=== PATIENT | female | born 2000 | race African-American/Black ===

== ENCOUNTER 2022-10-26 12:54 | Inpatient (IN) | payer OTHER ==
[2022-10-28] MEDS ORDERED: fentaNYL 50 mcg/mL 1 mL Vial SLOW IVP PRN (21:54)
[2022-10-28] MEDS ORDERED: Acetaminophen 500 MG TAB PO PRN (21:54)
[2022-10-28] MEDS ORDERED: Ibuprofen 800 MG TAB PO PRN (21:54)
[2022-10-28] MEDS ORDERED: Diphenoxylate HCl/Atropine Tablet PO PRN (21:54)
[2022-10-28] MEDS ORDERED: Ondansetron PF 4 MG/2 ML Vial IVP PRN (21:54)
[2022-10-28] MEDS ORDERED: Methylergonovine 0.2 MG/ML VIAL IM PRN (21:54)
[2022-10-28] MEDS ORDERED: HYDROcodone/Acetaminophen 5/325 mg Tablet PO PRN (21:54)
[2022-10-28] MEDS ORDERED: Misoprostol 200 MCG TAB PR PRN (21:54)
[2022-10-28] MEDS ORDERED: Lidocaine 1% (PF) 30 ML VIAL SC PRN (21:54)
[2022-10-28] MEDS ORDERED: Carboprost 250 MCG/ML AMP IM PRN (21:54)
[2022-10-28] MEDS ORDERED: Promethazine HCl 25 MG/ML VIAL IM PRN (21:54)
[2022-10-28] MEDS ORDERED: hydrALAZINE 20 MG/ML VIAL SLOW IVP PRN (21:54)
[2022-10-28] MEDS ORDERED: Tranexamic Acid 1,000 MG/10 ML VIAL IVP PRN (21:54)
[2022-10-28] MEDS ORDERED: NS w/ Oxytocin 30 units 500 ML IV SCH ×3 (22:00)
[2022-10-28 22:13] VITALS: BMI 30.8
[2022-10-28 22:20] LABS: White Blood Cell (WBC) Count 8.7 10x3/uL (3.5-10.5)
[2022-10-28 22:21] LABS: Hemoglobin 11.6 g/dL (12.0-15.5); Mean Corpuscular HGB CONC 33.3 g/dL (32.0-36.0); Mean Corpuscular Volume 77.9 fl (81.6-98.3); Mean Platelet Volume 13.7 fl (7.4-10.4); Platelet Count 156 10x3/uL (150-450); RBC Distribution Width 13.7 % (11.5-14.5); Red Blood Cell (RBC) Count 4.47 10x6/uL (3.90-5.03)
[2022-10-28] MEDS: Misoprostol 100 MCG TAB VAG SCH (22:22)
[2022-10-28] MEDS: Lactated Ringer's 1,000 ML IV SCH (22:22)
[2022-10-28 22:47] LABS: HBSAg Index 0.17 S/CO (0-0.99); Hep B Surf Ag - L&D Non-Reactive S/CO (NonReactive)
[2022-10-28 22:48] LABS: Syphilis Antibody Nonreactive (Nonreactive); Syphilis Antibody Index 0.24 S/CO (<1.00 Non-Reactive)
[2022-10-29] MEDS ORDERED: Terbutaline Sulfate 1 MG/ML VIAL ONE (00:41)
[2022-10-29] MEDS: Misoprostol 100 MCG TAB VAG SCH ×3 (03:59→14:12)
[2022-10-29] MEDS ORDERED: CEFAZOLIN 2 GM VIAL ONE (10:28)
[2022-10-29] MEDS ORDERED: Morphine PF 10 MG/10 ML VIAL ONE (11:04)
[2022-10-29] MEDS ORDERED: Ondansetron PF 4 MG/2 ML Vial ONE ×2 (11:25)
[2022-10-29] MEDS ORDERED: Oxytocin 10 UNITS/ML VIAL ONE (11:25)
[2022-10-29] MEDS ORDERED: Dexamethasone 4 mg/ml Vial ONE (11:25)
[2022-10-29] MEDS ORDERED: Ketorolac Tromethamine 30 MG/ML VIAL ONE (11:25)
[2022-10-29] MEDS ORDERED: Naloxone HCl 0.4 mg/ml Vial IV PRN (12:15)
[2022-10-29] MEDS ORDERED: Ondansetron HCl/PF 4 MG/2 ML Vial IVP PRN (12:15)
[2022-10-29] MEDS ORDERED: Ketorolac Tromethamine 30 MG/ML VIAL IVP PRN (12:15)
[2022-10-29] MEDS ORDERED: Communication Order-Pharmacy FS SCH (12:15)
[2022-10-29] MEDS ORDERED: Promethazine HCl 25 MG/ML VIAL IM PRN ×2 (12:15→14:12)
[2022-10-29] MEDS ORDERED: Ketorolac Tromethamine 30 MG/ML VIAL IVP SCH (12:15)
[2022-10-29] MEDS ORDERED: Ondansetron PF 4 MG/2 ML Vial IVP PRN ×2 (12:15→14:12)
[2022-10-29] MEDS ORDERED: Moisturizing Cream (Eucerin) 113 GM JAR TOP PRN (12:15)
[2022-10-29] MEDS ORDERED: Naloxone HCl 0.4 mg/ml Vial IVP PRN ×2 (12:15)
[2022-10-29] MEDS ORDERED: diphenhydrAMINE 50 MG/ML VIAL IVP PRN (12:15)
[2022-10-29] MEDS ORDERED: Fentanyl 100 MCG/2 ML VIAL SLOW IVP PRN (12:15)
[2022-10-29] MEDS ORDERED: Promethazine HCl 25 MG SUPP PR PRN (12:15)
[2022-10-29] MEDS ORDERED: Meperidine HCl/PF 25 MG/ML VIAL SLOW IVP PRN (12:15)
[2022-10-29] MEDS: Lactated Ringer's 1,000 ML IV SCH (14:11)
[2022-10-29] MEDS ORDERED: Simethicone Chewable 80 MG TAB PO PRN (14:12)
[2022-10-29] MEDS ORDERED: diphenhydrAMINE 25 MG CAP PO PRN (14:12)
[2022-10-29] MEDS ORDERED: Lanolin Ointment 7 GM TUBE TOP PRN (14:12)
[2022-10-29] MEDS ORDERED: hydrALAZINE 20 MG/ML VIAL SLOW IVP PRN (14:12)
[2022-10-29] MEDS ORDERED: Bisacodyl 10 MG SUPP PR PRN (14:12)
[2022-10-29] MEDS ORDERED: Boostrix 0.5 ML (Tdap) VIAL (>/=7 yrs of age) IM ONE (14:12)
[2022-10-29] MEDS: Ketorolac Tromethamine 30 MG/ML VIAL IVP SCH ×2 (17:39→23:58)
[2022-10-29] MEDS: Docusate 100 MG CAP PO SCH (23:57)
[2022-10-29] MEDS: Ferrous Sulfate 325 MG TAB PO SCH (23:59)
[2022-10-30 04:06] LABS: Hemoglobin 9.7 g/dL (12.0-15.5); Mean Corpuscular HGB CONC 31.9 g/dL (32.0-36.0); Mean Corpuscular Hemoglobin 25.5 pg (27.0-33.0); Platelet Count 127 10x3/uL (150-450); RBC Distribution Width 13.9 % (11.5-14.5); White Blood Cell (WBC) Count 14.2 10x3/uL (3.5-10.5)
[2022-10-30] MEDS: Ketorolac Tromethamine 30 MG/ML VIAL IVP SCH (06:21)
[2022-10-30] MEDS: HYDROcodone/Acetaminophen 5/325 mg Tablet PO PRN ×2 (07:28→18:45)
[2022-10-30] MEDS: Ferrous Sulfate 325 MG TAB PO SCH ×2 (08:37→21:21)
[2022-10-30] MEDS: Prenatal Vitamin 1 TAB PO SCH (08:44)
[2022-10-30] MEDS: Docusate 100 MG CAP PO SCH ×2 (08:44→21:21)
[2022-10-30] MEDS: Ibuprofen 800 MG TAB PO SCH ×2 (14:50→21:21)
[2022-10-31] MEDS: HYDROcodone/Acetaminophen 5/325 mg Tablet PO PRN ×4 (01:13→21:53)
[2022-10-31] MEDS: Ibuprofen 800 MG TAB PO SCH ×3 (06:31→21:52)
[2022-10-31] MEDS: Ferrous Sulfate 325 MG TAB PO SCH ×2 (07:50→21:52)
[2022-10-31] MEDS: Docusate 100 MG CAP PO SCH ×2 (07:50→21:52)
[2022-10-31] MEDS: Prenatal Vitamin 1 TAB PO SCH (07:50)
[2022-11-01] MEDS: HYDROcodone/Acetaminophen 5/325 mg Tablet PO PRN ×3 (03:06→19:31)
[2022-11-01] MEDS: Ibuprofen 800 MG TAB PO SCH ×3 (06:48→15:20)
[2022-11-01] MEDS: Docusate 100 MG CAP PO SCH ×2 (08:45→21:51)
[2022-11-01] MEDS: Prenatal Vitamin 1 TAB PO SCH (08:45)
[2022-11-01] MEDS: Ferrous Sulfate 325 MG TAB PO SCH ×2 (08:47→21:51)
[2022-11-01 19:46] VITALS: TEMP 98.6
[2022-11-02] MEDS: Ibuprofen 800 MG TAB PO SCH (05:38)
[2022-11-02] MEDS: HYDROcodone/Acetaminophen 5/325 mg Tablet PO PRN (05:39)
[2022-11-02 07:39] VITALS: BP 110/62
[2022-11-02] MEDS: Prenatal Vitamin 1 TAB PO SCH (07:53)
[2022-11-02] MEDS: Docusate 100 MG CAP PO SCH (07:54)
[2022-11-02] MEDS: Ferrous Sulfate 325 MG TAB PO SCH (07:54)
== END 2022-11-02 09:45 | disposition home or self-care (01) | DRG 788 ==
LOC: CSHLD 10-28 21:01 → CSHPP 10-29 14:55
PROVIDERS: ADMIT Family Medicine; ATTEND Family Medicine
PROC: 10D00Z1 Extraction of Products of Conception, Low, Open Approach (ICD-10-PCS; principal; 2022-10-29)
DX: O48.0 Post-term pregnancy (principal); Z3A.40 40 weeks gestation of pregnancy; Z37.0 Single live birth; Z79.899 Other long term (current) drug therapy; O35.8XX0 Maternal care for other (suspected) fetal abnormality and damage, not applicable or unspecified
CPT/HCPCS: 36415; 51702; 85027; 86780; 86850; 86900; 86901; 87340; 88307; J1100; J1885; J2274; J2405; J2550; J2590; J3105; J7120